=== PATIENT | female | born 1980 | race Caucasian/White ===

== ENCOUNTER 2017-08-06 16:05 | Outpatient (CLI) | payer OTHER | END 2017-08-06 16:06 | disposition home or self-care (01) | LOC: BICRAD 16:05 | PROVIDERS: ATTEND Chiropractor | DX: M54.5 Low back pain (principal); M41.9 Scoliosis, unspecified | CPT/HCPCS: 72081 ==

== ENCOUNTER 2021-01-17 09:21 | Outpatient (CLI) | payer OTHER | END 2021-01-17 09:22 | disposition home or self-care (01) | LOC: RAD-FRANK 09:21 | PROVIDERS: ATTEND Nurse Practitioner Family | DX: S39.012A Strain of muscle, fascia and tendon of lower back, initial encounter (principal) | CPT/HCPCS: 72100 ==